=== PATIENT | female | born 1985 | race Caucasian/White ===

== ENCOUNTER 2017-07-03 20:56 | Emergency (ER) | payer OTHER ==
[~2017-07-03] VITALS: Ht 167.6 cm; Wt 75.5 kg
[2017-07-03] MEDS ORDERED: RABIES IMMUNE GLOBULIN/PF 150 UNITS/ML, 2ML IM ONE (22:30)
[2017-07-03] MEDS ORDERED: RABIES VACCINE /PF 2.5 UNITS IM-VACC ONE (22:30)
[2017-07-03 23:43] VITALS: BP 119/74
== END 2017-07-03 23:44 | disposition home or self-care (01) ==
LOC: ED 23:05
DX: Z20.3 Contact with and (suspected) exposure to rabies (principal)
CPT/HCPCS: 90375; 90675; 96372